=== PATIENT | male | born 1995 | race Caucasian/White ===

== ENCOUNTER 2023-06-07 07:34 | Emergency (ER) | payer SELFPAY ==
[2023-06-07 07:43] VITALS: BP 116/60; PULSE 79; RESP 16; TEMP 36.7; O2SAT 98; BMI 27.1
--- NOTE | 2023-06-07 07:50 | XR_ITS ---
WS: [id number] Left ankle, 3 views, 06/07/2023 Clinical Data: trauma Comparison: None. Findings: No fractures or dislocations are seen. The ankle mortise is normal. The talus and calcaneus are unrem arkable. No soft tissue swelling over the medial or lateral malleolus is seen. There is a small Achilles spur. Impression: Negative left ankle.
[2023-06-07 08:03] VITALS: PULSE 67
--- NOTE | 2023-06-07 08:29 | ED_ITS ---
HPI - Extremity Problem General: Chief complaint: Extremity Injury, Lower Stated complaint: left foot pain Time Seen by Provider: 06/07/23 07:50 Source: patient Mode of arrival: ambulatory History of Present Illness: 27-year-old male presents emergency room he twisted his left ankle at work yesterday complaining of severe pain this morning he has not taken anything for it. He has been ambulatory. No previous injury to the ankle MD Complaint: joint pain Onset (ago): day(s) (1) Pain Consistency: constant Location: left (Ankle) Quality: sharp Radiation: none Relieving factors: rest Exacerbating factors: range of motion, weight bearing and palpation Associated symptoms: Deny arthralgias, chest pain, fever(s), myalgias, rash or short of breath Review of Systems Const: Denies: fever(s) Card: Denies: chest pain Musc: Denies: neck pain or back pain Skin/Breast: Denies: rash Physical Exam Const: GENERAL APPEARANCE: cooperative and comfortable ORIENTATION/CONSCIOUSNESS: Yes awake, Yes oriented to person, Yes oriented to place and Yes oriented to time HENMT: COMMON NORMALS: normocephalic, atraumatic and hearing grossly normal bilaterally HEAD & SCALP: normocephalic and atraumatic Extremity: OTHER: Left ankle no swelling or ecchymosis. Joint intact. No deformity. Neuro: SENSORIUM/ORIENTATION: Yes oriented to person, Yes oriented to place and Yes oriented to time Skin: COMMON NORMALS: no rashes or lesions noted GENERAL SKIN EXAM: no rashes or lesions noted Course Vital Signs: Vital signs: Vital Signs Temperature 98.0 F 06/07/23 07:43 Pulse Rate 67 06/07/23 08:03 Respiratory Rate 16 06/07/23 07:43 Blood Pressure 116/60 06/07/23 07:43 Pulse Oximetry 98 06/07/23 07:43 Oxygen Delivery Me thod Room Air 06/07/23 07:43 MDM - Extremity (Nontraumatic) Medical Decision Making X-ray negative. Patient reporting significant pain. Given Toradol IM in the emergency room will discharge home with diclofenac posterior splint nonweightbearing on crutches and follow-up with podiatry Medical Records I reviewed the patient's medical records. Lab Data I reviewed the patient's lab results. All radiology interpretation(s) finalized by discharge Discharge Plan Discharge Patient Disposition: Home Clinical Impression: Ankle sprain and strain Condition: Stable Prescriptions: New diclofenac sodium 75 mg tablet,delayed release (DR/EC) 75 mg PO Q12H PRN (Reason: pain) Qty: 20 0RF Discharge Orders: Discharge ED (Routine); Ordered 06/07/23 Ordered By: Jamal Hansen Discharge Diet: Usual diet Discharge Activity: Resume usual activity Patient Instructions: Opioid Safety, Pain Management Activity Restrictions/Additional Instructions: Thank you for choosing [facility] for your healthcare needs today. Please realize this is an emergency room and that we are providing you with a medical screening exam and this may not be complete and all inclusive of all the testing and or work up that you may need to determine your ailment or severity of your illness. It is very important that you follow up as instructed or that you return to the Emergency Department should you have concerns or if your condition changes or worsens in any way. You are seen today for ankle injury. X-rays did not show any acute fractures. Recommend diclofenac as needed for discomfort elevate and ice. You are placed in a posterior splint and recommend use crutches and nonweightbearing until seen by podiatry. Coding Level of Care Code ED Raw Juice Weigher for Johnny Velazquez
--- NOTE | 2023-06-07 08:32 | ED_ITS ---
HPI - Extremity Problem General: Chief complaint: Extremity Injury, Lower Stated complaint: left foot pain Time Seen by Provider: 06/07/23 07:50 Source: patient Mode of arrival: ambulatory History of Present Illness: Pain Consistency: constant Location: left (Ankle) Quality: sharp Relieving factors: rest Exacerbating factors: range of motion, weight bearing and palpation Course Vital Signs: Vital signs: Vital Signs Temperature 98.0 F 06/07/23 07:43 Pulse Rate 67 06/07/23 08:03 Respiratory Rate 16 06/07/23 07:43 Blood Pressure 116/60 06/07/23 07:43 Pulse Oximetry 98 06/07/23 07:43 Oxygen Delivery Me thod Room Air 06/07/23 07:43 Discharge Plan Discharge Patient Disposition: Home Clinical Impression: Ankle sprain and strain Condition: Stable Prescriptions: New diclofenac sodium 75 mg tablet,delayed release (DR/EC) 75 mg PO Q12H PRN (Reason: pain) Qty: 20 0RF Discharge Orders: Discharge ED (Routine); Ordered 06/07/23 Ordered By: Jamal Hansen Discharge Diet: Usual diet Discharge Activity: Resume usual activity Patient Instructions: Opioid Safety, Pain Management Activity Restrictions/Additional Instructions: Thank you for choosing [facility] for your healthcare needs today. Please realize this is an emergency room and that we are providing you with a medical screening exam and this may not be complete and all inclusive of all the testing and or work up that you may need to determine your ailment or severity of your illness. It is very important that you follow up as instructed or that you return to the Emergency Department should you have concerns or if your condition changes or worsens in any way. You are seen today for ankle injury. X-rays did not show any acute fractures. Recommend diclofenac as needed for discomfort elevate and ice. You are placed in a posterior splint and recommend use crutches and nonweightbearing until seen by podiatry. Coding Level of Care Code ED Bond Runner for Johnny Velazquez
--- NOTE | 2023-06-11 09:19 | DCPLANNER ---
Message was sent to podiatry on 06/11/23 at 0919. Clinic to contact patient.
== END 2023-06-07 09:17 | disposition home or self-care (01) ==
PROVIDERS: Emergency Provider Family Medicine
DX: S93.402A Sprain of unspecified ligament of left ankle, initial encounter (principal); S96.912A Strain of unspecified muscle and tendon at ankle and foot level, left foot, initial encounter; X50.1XXA Overexertion from prolonged static or awkward postures, initial encounter; Y99.0 Civilian activity done for income or pay
CPT/HCPCS: 29515; 73610; 99283; E0114

== ENCOUNTER 2024-10-09 12:49 | Emergency (ER) | payer SELFPAY ==
[2024-10-09 12:51] VITALS: BP 145/78; PULSE 69; RESP 16; TEMP 36.7; O2SAT 98; BMI 19.6
[2024-10-09] MEDS: fluorescein 1 mg Strip EYE-LEFT (13:53)
[2024-10-09] MEDS: tetracaine 0.5% Op Soln 4 mL Btl 1 DROP EYE-LEFT (13:53)
--- NOTE | 2024-10-09 13:58 | ED_ITS ---
HPI - Eye Problem 2 General: Chief complaint: Eye Problems Stated complaint: something in left eye Time Seen by Provider: 10/09/24 13:25 History of Present Illness: Patient is a pleasant 29-year-old male without medical issues that was at the [facility], and felt like something entered his eye. He has had eye irritation just after the sensation of saw getting in his eye approximately 1 hour ago. Patient believes it has felt better the last 30 minutes. Associated symptoms: Denies headache(s), nausea, neck pain or vomiting Related Data Previous Rx's ?Medication ?Instructions ?Recorded diclofenac sodium 75 mg 75 mg PO Q12H PRN pain #20 t abs 06/07/23 tablet,delayed release polymyxin B sulfate 10,000 1 drp ophthalmic (eye) Q3H #10 mL 10/09/24 unit-trimethoprim 1 mg/mL eye drops Allergies Allergy/AdvReac Type Severity Reaction Status Date / Time No Known Allergies Allergy Verified 06/07/23 07:48 Review of Systems 2 General: Reports: 10 or more systems reviewed and unremarkable except in HPI and below Eyes: Reports: eye discomfort, eye redness and increased production of tears; Denies: change in vision, blurry vision, blind spots, photophobia, eye discharge, dry eyes, floaters or seeing flashes ENMT: Denies: throat pain or odynophagia Card: Denies: chest pain or palpitations Resp: Denies: dyspnea or productive cough GI: Denies: abdominal pain, nausea or vomiting : Denies: flank pain Musc: Denies: neck pain, back pain or extremity pain Neuro: Denies: headache(s), numbness in extremities or sensory changes Psych: Denies: anxiety or depression Physical Exam 2 Const: COMMON NORMALS: no acute distress, patient oriented x3, healthy appearing and alert GENERAL APPEARANCE: cooperative HENMT: COMMON NORMALS: normocephalic, atraumatic, hearing grossly normal bilaterally, external ears normal, TM's normal bilaterally and oropharynx normal HEAD & SCALP: normocephalic and atraumatic EXTERNAL EAR: Yes external ears normal TYMPANIC MEMBRANE: TM's normal bilaterally Eye: COMMON NORMALS: Equal, round and reactive pupils present CONJUNCTIVA: Yes conjunctival abnormal positive left conjunctival injection (minimal clear drainage) localized SCLERA: scleral abnormal (irritation without fb at 11 oclock, medial upper section) Laterality of scleral abnormality: positive left CORNEA: Yes corneas normal and fluorescein used PUPIL: Yes Equal, round and reactive pupils present and Yes Pupil accommodation reflex normal EOM: No EOM abnormal and No movement deficit SLIT LAMP EXAM: Yes slit lamp exam performed with fluorescein, Yes lids/lashes/lacrimal system and Yes lens Lens details: clear EYE IMAGES: 1. irritation without fb Resp: COMMON NORMALS: normal respiratory effort and clear to auscultation bilaterally EFFORT & INSPECTION: Yes able to speak in complete sentences A USCULTATION: clear to auscultation bilaterally Cardio: COMMON NORMALS: regular rate and regular rhythm RATE: regular rate RHYTHM: regular rhythm GI: COMMON NORMALS: Normal to inspection, nondistended, normoactive bowel sounds present, Soft to palpation and non-tender PALPATION: Yes Soft to palpation Extremity: COMMON NORMALS: normal to inspection and full ROM Neuro: COMMON NORMALS: patient oriented x3 SENSORIUM/ORIENTATION: Yes alert Psych: COMMON NORMALS: mental status grossly normal and Normal thought process present THOUGHT PROCESS: Normal thought process present Course 2 Vital Signs: Vital signs: Vital Signs Temperature 98.0 F 10/09/24 12:51 Pulse Rate 73 10/09/24 14:29 Respiratory Rate 16 10/09/24 14:29 Blood Pressure 136/72 10/09/24 14:29 Pulse Oximetry 100 10/09/24 14:29 Oxygen Delivery Me thod Room Air 10/09/24 12:51 MDM - Eye Problem Medical Decision Making Patient is 29-year-old male with saw/foreign body feeling to left eye just prior to arrival. Irritation to his sclera was noted in the medial upper lower chamber without foreign body. Will advise Ciprodex solution. Patient tolerated procedure well/Pardo/slit lamp without issues. Eye was washed well after. Tetracaine was utilized for anesthesia. No radiology studies performed this visit Discharge Plan Discharge Patient Disposition: Home Clinical Impression: Corneal abrasion Qualifiers: Encounter type: initial encounter Laterality: left Qualified Code(s): S05.02XA - Injury of conjunctiva and corneal abrasion without foreign body, left eye, initial encounter Condition: Stable Prescriptions: New polymyxin B sulf-trimethoprim 10,000 unit- 1 mg/mL drops 1 drp ophthalmic (eye) Q3H Qty: 10 0RF Rx Instructions: while awake; do not exceed 6 doses in 24 hours No Action diclofenac sodium 75 mg tablet,delayed release (DR/EC) 75 mg PO Q12H PRN (Reason: pain) Qty: 20 0RF Discharge Orders: Discharge ED (Routine); Ordered 10/09/24 Ordered By: Samara Guajardo Discharge Diet: Usual diet Discharge Activity: Resume usual activity Patient Instructions: Corneal Abrasion (ED) Print Language: Greenlandic Coding Level of Care Code ED Er Rn for Johnny Velazquez
[2024-10-09 14:29] VITALS: BP 136/72; PULSE 73; RESP 16; O2SAT 100
== END 2024-10-09 14:30 | disposition home or self-care (01) ==
PROVIDERS: Emergency Provider Physician Assistant
DX: S05.02XA Injury of conjunctiva and corneal abrasion without foreign body, left eye, initial encounter (principal); X58.XXXA Exposure to other specified factors, initial encounter
CPT/HCPCS: 99283; J9999